=== PATIENT | male | born 1975 ===

== ENCOUNTER 2017-02-27 11:55 | Inpatient (IN) | payer OTHER ==
[2017-02-27] MEDS ORDERED: Sodium Chloride 0.9% 1,000 ML IV STA (12:01)
--- NOTE | 2017-02-27 12:04 | ED PDOC ---
Arrival/HPI - General Chief Complaint: GI Problem Time Seen by Provider: 02/27/17 11:57 Historian: Patient - History of Present Illness Narrative History of Present Illness (Text): 02/27/17 12:04 41 year old male, denies past medical history, presents to the emergency department with vomiting, chest pain, and abdominal pain worsening yesterday. He states the chest pain is sharp. Patient also reports chills, sweats, and diarrhea. No other complaints. Time/Duration: < week Symptom Onset: Gradual Symptom Course: Worsening Modifying Factors (Text): None Past Medical History - Provider Review Nursing Documentation Reviewed: Yes - Infectious Disease Hx of Infectious Diseases: None - Gastrointestinal Other/Comment: Unknown problem diagnosed at [facility] [place] - Psychiatric Hx Substance Use: Yes Family/Social History - Physician Review Nursing Documentation Reviewed: Yes Family/Social History: Unknown Family HX Smoking Status: Heavy Smoker > 10 Cigarettes Daily Hx Alcohol Use: No Hx Substance Use: Yes Allergies/Home Meds Allergies/Adverse Reactions: Allergies No Known Allergies Allergy (Verified 02/27/17 12:02) Home Medications: Home Meds Medication Instructions Recorded Confirmed Unobtainable 02/27/17 02/27/17 Review of Systems - Physician Review All systems were reviewed & negative as marked: Yes - Review of Systems Constitutional: Other (Chills) Cardiovascular: Chest Pain Gastrointestinal: Abdominal Pain, Diarrhea, Nausea, Vomiting Endocrine: Diaphoresis Physical Exam Vital Signs Reviewed: Yes Vital Signs Temp Pulse Resp BP Pulse Ox 02/27/17 18:54 48 L 18 117/78 100 02/27/17 17:36 58 L 18 153/90 H 98 02/27/17 15:20 48 L 18 147/85 100 02/27/17 13:28 50 L 18 154/80 H 98 02/27/17 11:56 98 F 56 L 16 135/71 100 Temperature: Afebrile Blood Pressure: Normal Pulse: Bradycardic Respiratory Rate: Normal Appearance: Positive for: Uncomfortable Pain Distress: Moderate Mental Status: Positive for: Alert and Oriented X 3 - Systems Exam Head: Present: Atraumatic, Normocephalic Pupils: Present: PERRL Extroacular Muscles: Present: EOMI Conjunctiva: Present: Normal Mouth: Present: Moist Mucous Membranes Neck: Present: Normal Range of Motion Respiratory/Chest: Present: Clear to Auscultation, Good Air Exchange. No: Respiratory Distress, Accessory Muscle Use Cardiovascular: Present: Regular Rate and Rhythm, Normal S1, S2. No: Murmurs Abdomen: Present: Tenderness (Epigastric ), Normal Bowel Sounds. No: Distention , Peritoneal Signs Back: Present: Normal Inspection Upper Extremity: Present: Normal Inspection. No: Cyanosis, Edema Lower Extremity: Present: Normal Inspection. No: Edema Neurological: Present: GCS=15, CN II-XII Intact, Speech Normal Skin: Present: Warm, Dry, Normal Color. No: Rashes Psychiatric: Present: Alert, Oriented x 3, Normal Insight, Normal Concentration Medical Decision Making ED Course and Treatment: Impression: 41 year old male, denies past medical history, presents to the emergency department with vomiting, chest pain, and abdominal pain worsening yesterday. Differential Diagnosis included but are not limited to: r/o colitis/gastritis/ appendicitis Plan: -- EKG, CXR -- Zofran, Protonix -- Labs -- Reassess and disposition Progress Notes: Patient is PERC negative. 02/27/17 12:51 pt reassessed. states symptoms improving ,now reprots rlq pain PROCEDURE: CT Abdomen and Pelvis with contrast Language Path : Dr. Hernández, Seth BARNARD Report Date : 02/27/2017 16:32:55 IMPRESSION: Minimal barium is noted within the appendiceal lumen with overall slight prominence of the appendix. There is, however, no abnormal enhancement or periappendiceal fat infiltration. Early appendicitis is not definitively excluded. 02/27/17 19:31 pt with ekg showing sinus brielle. no previous for comparison. pt asymptomatic, hemodynamically stable. suspect baseline for pt. pt eval by dr aaron oliva. requests hospitalist admission for eval for possible or tommorow. npo after midnight - Lab Interpretations Lab Results: 02/27/17 12:20 02/27/17 12:20 Lab Results 02/27/17 14:20: Urine Color Yellow, Urine Appearance Clear, Urine pH 8.5, Ur Specific [place] 1.020, Urine Protein Trace H, Urine Glucose (UA) Negative, Urine Ketones >=80, Urine Blood Negative, Urine Nitrate Negative, Urine Bilirubin Negative, Urine Urobilinogen 0.2, Ur Leukocyte Esterase Negative, Urine RBC Negative, Urine WBC 1 - 3, Ur Epithelial Cells 1 - 3, Urine Bacteria Few 02/27/17 12:20: Sodium 140, Potassium 4.4, Chloride 104, Carbon Dioxide 23, Anion Gap 17, BUN 12, Creatinine 1.0, Est GFR ( Amer) > 60, Est GFR (Non- Af Amer) > 60, Random Glucose 116 H, Calcium 10.1, Total Bilirubin 1.2, AST 42, ALT 73 H, Alkaline Phosphatase 72, Total Protein 8.1, Albumin 4.8, Globulin 3.2 , Albumin/Globulin Ratio 1.5, Lipase 34 02/27/17 12:20: PT 10.7, INR 0.99, APTT 25.9 02/27/17 12:20: WBC 11.7 H, RBC 4.80, Hgb 15.3, Hct 43.9, MCV 91.5, MCH 31.9, MCHC 34.9, RDW 12.9, Plt Count 158, MPV 12.2 H, Gran % 84.9 H, Lymph % (Auto) 10.9 L, [place] % (Auto) 3.7, Eos % (Auto) 0.3 L, Baso % (Auto) 0.2, Gran # 9.92 H , Lymph # 1.3, [place] # 0.4, Eos # 0.0, Baso # 0.02 02/27/17 12:00: Lactate Dehydrogenase 500, Total Creatine Kinase 274 H, CK-MB ( CK-2) Pending, CK-MB (CK-2) % Pending, Troponin I < 0.01 - RAD Interpretation Radiology Orders: 02/27/17 12:01 CXR [CHEST PORTABLE] [RAD] Stat 02/27/17 12:51 ABD & PELVIS IV CONTRAST ONLY [CT] Stat - EKG Interpretation EKG Interpretation (Text): EKG shows sinus bradycardia at 40 BPM with early repolarization. Interpreted by me. Interpreted by ED Physician: Yes Type: 12 lead EKG - Medication Orders Current Medication Orders: Discontinued Medications Sodium Chloride (Sodium Chloride 0.9%) 1,000 mls @ 1,000 mls/hr IV .Q1H STA Stop: 02/27/17 13:00 Last Admin: 02/27/17 12:20 Dose: 1,000 mls/hr Piperacillin Sod/Tazobactam Sod (Zosyn 3.375 In Ns 100ml) 100 mls @ 200 mls/hr IVPB STAT STA PRN Reason: Protocol Stop: 02/27/17 17:04 Last Admin: 02/27/17 16:57 Dose: 200 mls/hr Iohexol (Omnipaque 350 100 Ml) Confirm Administered Dose 350 mg .ROUTE .STK-MED ONE Stop: 02/27/17 13:44 Ondansetron HCl (Zofran Inj) 4 mg IVP STAT STA Stop: 02/27/17 12:02 Last Admin: 02/27/17 12:19 Dose: 4 mg Pantoprazole Sodium (Protonix Inj) 40 mg IVP STAT STA Stop: 02/27/17 12:02 Last Admin: 02/27/17 12:20 Dose: 40 mg - Scribe Statement The provider has reviewed the documentation as recorded by the Agnes Barriga Provider Scribe Attestation: All medical record entries made by the Agnes were at my direction and personally dictated by me. I have reviewed the chart and agree that the record accurately reflects my personal performance of the history, physical exam, medical decision making, and the department course for this patient. I have also personally directed, reviewed, and agree with the discharge instructions and disposition. Disposition/Present on Arrival - Present on Arrival Any Indicators Present on Arrival: No History of DVT/PE: No History of Uncontrolled Diabetes: No Urinary Catheter: No History of Decub. Ulcer: No History Surgical Site Infection Following: None - Disposition Have Diagnosis and Disposition been Completed?: Yes Diagnosis: Appendicitis, Chest pain, Bradycardia Disposition: HOSPITALIZED Disposition Time: 20:34 Condition: STABLE
[2017-02-27 12:26] LABS: ADD MANUAL DIFF? NO
[2017-02-27 12:35] LABS: BASO # 0.02 K/mm3 (0.0-2.0); BASO % 0.2 % (0.0-3.0); EOS % 0.3 % (1.5-5.0); GRAN # 9.92 (1.4-6.5); GRAN % 84.9 % (50.0-68.0); HEMATOCRIT 43.9 % (42.0-52.0); LYMPH # 1.3 (1.2-3.4); LYMPH % 10.9 % (22.0-35.0); MEAN CELL VOLUME 91.5 fL (80.0-105.0); MEAN CORPUSCULAR HEMOGLOBIN 31.9 pg (25.0-35.0); MEAN CORPUSCULAR HGB CONC 34.9 g/dl (31.0-37.0); MEAN PLATELET VOLUME 12.2 fl (7.0-11.0); MONO # 0.4 (0.1-0.6); MONO % 3.7 % (1.0-6.0); PLATELET COUNT 158 10^3/uL (120.0-450.0); RED CELL DISTRIBUTION WIDTH 12.9 % (11.5-14.5); WHITE BLOOD COUNT 11.7 10^3/ul (4.5-11.0)
[2017-02-27 12:38] LABS: ALB/GLOB RATIO 1.5 (1.1-1.8); ALKALINE PHOSPHATASE 72 U/L (38-133); ALT/SGPT 73 U/L (7-56); AST/SGOT 42 U/L (15-59); BILIRUBIN,TOTAL 1.2 mg/dL (0.2-1.3); BLOOD UREA NITROGEN 12 mg/dL (7-21); CALCIUM 10.1 mg/dL (8.4-10.5); CARBON DIOXIDE 23 mmol/L (21-33); CHLORIDE 104 mmol/L (98-107); GFR AFRICAN-AMERICAN > 60; GLUCOSE,RANDOM 116 mg/dL (70-110); LIPASE 34 U/L (23-300); POTASSIUM 4.4 mmol/L (3.6-5.0); SODIUM 140 mmol/L (132-148); TOTAL PROTEIN 8.1 g/dL (5.8-8.3)
[2017-02-27 12:40] LABS: INR 0.99 (0.93-1.08); PARTIAL THROMBOPLASTIN TIME 25.9 Seconds (23.7-30.8)
[2017-02-27] MEDS ORDERED: Iohexol 350 MG/100 ML VIAL ONE (13:43)
[2017-02-27 15:01] LABS: PH,URINE 8.5 (4.7-8.0); URINE BILIRUBIN NEGATIVE (NEGATIVE); URINE BLOOD NEGATIVE (NEGATIVE); URINE GLUCOSE (UA) NEGATIVE (NEGATIVE); URINE KETONE >=80 mg/dL (NEGATIVE); URINE LEUKOCYTE ESTERASE NEGATIVE Leu/uL (NEGATIVE); URINE PROTEIN TRACE mg/dL (<30 mg/dL); URINE UROBILINOGEN 0.2 E.U./dL (<1 E.U./dL)
[2017-02-27 15:15] LABS: URINE APPEARANCE CLEAR (CLEAR); URINE COLOR YELLOW (YELLOW)
[2017-02-27 15:30] LABS: URINE BACTERIA FEW (NEG); URINE RBC NEGATIVE /hpf (0-2)
--- NOTE | 2017-02-27 15:43 | CARD ---
APPROVED REPORT EKG Measurement Heart [id number] IN [id number] [id number] <Conclusion> Marked sinus bradycardia with sinus arrhythmia Voltage criteria for left ventricular hypertrophy Early repolarization Abnormal ECG
--- NOTE | 2017-02-27 16:34 | CT ---
PROCEDURE: CT Abdomen and Pelvis with contrast HISTORY: right sided abd pain COMPARISON: None. TECHNIQUE: Contrast dose: Radiation dose: Total exam DLP = mGy-cm. This CT exam was performed using one or more of the following dose reduction techniques: Automated exposure control, adjustment of the mA and/or kV according to patient size, and/or use of iterative reconstruction technique. FINDINGS: LOWER THORAX: Unremarkable. LIVER: Unremarkable. No gross lesion or ductal dilatation. GALLBLADDER AND BILE DUCTS: Unremarkable. PANCREAS: Unremarkable. No gross lesion or ductal dilatation. SPLEEN: Unremarkable. ADRENALS: Unremarkable. No mass. KIDNEYS AND URETERS: Unremarkable. No hydronephrosis. No solid mass. VASCULATURE: Unremarkable. No aortic aneurysm. BOWEL: Unremarkable. No obstruction. No gross mural thickening. APPENDIX: Minimal barium is noted within the appendiceal lumen with overall slight prominence of the appendix. There is,, no abnormal enhancement or perihepatic appendiceal fat infiltration. PERITONEUM: Unremarkable. No free fluid. No free air. LYMPH NODES: Unremarkable. No enlarged lymph nodes. BLADDER: Unremarkable. REPRODUCTIVE: Unremarkable. BONES: No acute fracture. OTHER FINDINGS: None. IMPRESSION: Minimal barium is noted within the appendiceal lumen with overall slight prominence of the appendix. There is, however, no abnormal enhancement or periappendiceal fat infiltration. Early appendicitis is not definitively excluded.
[2017-02-27] MEDS ORDERED: Piperacillin/Tazobact 3.375 gm 100 ML IVPB STA (16:35)
[2017-02-27 19:23] LABS: TROPONIN I < 0.01 ng/mL
[2017-02-27] MEDS ORDERED: Pantoprazole 40mg/100ml IVPB 40 MG/100 ML BAG IVPB SCH (21:00)
--- NOTE | 2017-02-27 21:27 | CP.PCM.CON ---
History of Present Illness - History of Present Illness History of Present Illness: General Surgery Consult Note for Dr. Knowles CC: Abdominal Pain This is a 41M with no PMH who presented to the ED due to abdominal pain that he has been experiencing for on and off since oct 2016. He reports that he does not know any inciting or alleviating factors. He reports chest pain, as well as nausea and emesis when eating. He reports that his last meal was on . He is still passing gas and he reports his last bowel movement was earlier today. The patient reports a previous diagnosisi of hiatal hernia for which he was prescribed antacid medications. He denies any fevers, or chills at home. PMH: Hiatal Hernia PSH: Denies Social: smokes 5 cig/day, smokes marijuana multiple times per day, occasional alcohol use Fam hx: denies All: NKDA Review of Systems - Review of Systems All systems: reviewed and no additional remarkable complaints except Past Patient History - Infectious Disease Hx of Infectious Diseases: None - Past Social History Smoking Status: Heavy Smoker > 10 Cigarettes Daily - GASTROINTESTINAL Other/Comment: Unknown problem diagnosed at [facility] [place] - PSYCHIATRIC Hx Substance Use: Yes - SURGICAL HISTORY Hx Surgeries: No Meds Allergies/Adverse Reactions: Allergies Allergy/AdvReac Type Severity Reaction Status Date / Time No Known Allergies Allergy Verified 02/27/17 12:02 - Medications Medications: Current Medications Sodium Chloride (Sodium Chloride 0.9%) 1,000 mls @ 100 mls/hr IV .Q10H [facility] Ketorolac Tromethamine (Toradol) 15 mg IVP Q6 PRN PRN Reason: Pain, severe (8-10) Ondansetron HCl (Zofran Inj) 4 mg IVP Q6 PRN PRN Reason: Nausea/Vomiting Pantoprazole Sodium (Protonix Inj) 40 mg IVP DAILY [facility] Physical Exam - Constitutional Appears: Non-toxic, No Acute Distress - Head Exam Head Exam: ATRAUMATIC - Eye Exam Eye Exam: EOMI - ENT Exam ENT Exam: Mucous Membranes Moist - Respiratory Exam Respiratory Exam: NORMAL BREATHING PATTERN - Cardiovascular Exam Cardiovascular Exam: REGULAR RHYTHM - GI/Abdominal Exam GI & Abdominal Exam: Soft, Tenderness. absent: Distended, Firm, Guarding, Hernia, Hypoactive Bowel Sounds, Rebound, Rigid - Extremities Exam Extremities exam: Positive for: normal inspection - Neurological Exam Neurological exam: Alert, Oriented x3 - Psychiatric Exam Psychiatric exam: Normal Affect, Normal Mood - Skin Skin Exam: Dry, Intact Results - Vital Signs Recent Vital Signs: Last Vital Signs Temp 98 F 02/27/17 11:56 Pulse 50 L 02/27/17 20:56 Resp 16 02/27/17 20:56 BP 120/40 L 02/27/17 20:56 Pulse Ox 100 02/27/17 20:56 - Labs Result Diagrams: 02/27/17 12:20 02/27/17 12:20 - Imaging and Cardiology CT scan - abdomen Status: Image reviewed by me, Report reviewed by me Assessment & Plan - Assessment and Plan (Free Text) Assessment: This is a 41M with a PMH of hiatal hernia presenting with chest pain and abdominal pain. CLD Followup AM labs Will re-examine in the morning Continue medical management per primary team. D/W Dr. Benson Velazquez PGY-1
--- NOTE | 2017-02-27 21:46 | CP.PCM.HP ---
<Rosita Parham - Last Filed: 02/28/17 01:19> History of Present Illness - History of Present Illness History of Present Illness: PGY-1 h&p 41 yo male with PMH of hiatal hernia presents to ED with vomiting, chest pain and abd pain. Patient states that the non-bloody emesis began yesterday night, he states he has had multiple episodes throughout the days. He states shortly after he began to vomiting he started to have chest pain, on the left side. The pain was constant, worse with his episodes of vomiting. He reports that the pain is worse with deep inspiration. He denies previous similar pain. He also reports diarrhea with small amount of bright red blood. He attempts to have cold sweats, denies fever, chills, headache, cough, urinary symptoms. PMH: hiatal hernia PSH: denies social: smokes 5 cig/day, smokes marijuana multiple times per day, occasional alcohol use Fam hx: denies allergy: NKDA no home meds PMD: Dr. Haywood Present on Admission - Present on Admission Any Indicators Present on Admission: No Review of Systems - Constitutional Constitutional: absent: Chills, Fever, Headache, Weakness - EENT Eyes: absent: Change in Vision Nose/Mouth/Throat: absent: Nasal Congestion, Nasal Discharge, Sinus Pain, Hoarsness, Sore Throat - Cardiovascular Cardiovascular: Chest Pain. absent: Dyspnea, Pain Radiating to Arm/Neck/Jaw, Leg Edema, Palpitations - Respiratory Respiratory: Pain on Inspiration (chest pain with deep inspiration ). absent: Cough, Dyspnea, Dyspnea on Exertion - Gastrointestinal Gastrointestinal: Abdominal Pain, Diarrhea, Heartburn, Hematochezia, Nausea, Vomiting. absent: Constipation, Hematemesis - Genitourinary Genitourinary: absent: Difficulty Urinating, Dysuria, Hematuria - Musculoskeletal Musculoskeletal: absent: Arthralgias, Myalgias, Numbness, Stiffness, Tingling - Integumentary Integumentary: absent: Rash, Skin Pain, Skin Ulcer, Sores, Swelling, Wounds - Neurological Neurological: absent: Dizziness, Numbness, Headaches, Syncope, Tingling, Weakness - Hematologic/Lymphatic Hematologic: absent: Easy Bleeding, Easy Bruising Past Patient History - Infectious Disease Hx of Infectious Diseases: None - Past Social History Smoking Status: Heavy Smoker > 10 Cigarettes Daily Alcohol: Occasional Drugs: Cannabis - GASTROINTESTINAL Other/Comment: Unknown problem diagnosed at [facility] [place] - PSYCHIATRIC Hx Substance Use: Yes - SURGICAL HISTORY Hx Surgeries: No Meds Allergies/Adverse Reactions: Allergies Allergy/AdvReac Type Severity Reaction Status Date / Time No Known Allergies Allergy Verified 02/27/17 12:02 Physical Exam - Constitutional Appears: Well, No Acute Distress - Head Exam Head Exam: ATRAUMATIC, NORMOCEPHALIC - Eye Exam Eye Exam: EOMI, Normal appearance - ENT Exam ENT Exam: Mucous Membranes Moist - Respiratory Exam Respiratory Exam: Clear to Auscultation Bilateral, NORMAL BREATHING PATTERN. absent: Decreased Breath Sounds, Rales, Rhonchi, Wheezes, Respiratory Distress - Cardiovascular Exam Cardiovascular Exam: REGULAR RHYTHM, +S1, +S2. absent: Tachycardia, Diastolic murmur, Systolic Murmur - GI/Abdominal Exam GI & Abdominal Exam: Normal Bowel Sounds, Soft, Tenderness (RLQ>LLQ). absent: Distended, Firm, Guarding - Extremities Exam Extremities exam: Positive for: normal inspection. Negative for: pedal edema, tenderness - Back Exam Back exam: absent: CVA tenderness (L), CVA tenderness (R), paraspinal tenderness , vertebral tenderness - Neurological Exam Neurological exam: Alert, Oriented x3 - Skin Skin Exam: Dry, Intact, Normal Color, Warm Results - Vital Signs Recent Vital Signs: Last Vital Signs Temp 98 F 02/27/17 11:56 Pulse 50 L 02/27/17 20:56 Resp 16 02/27/17 20:56 BP 120/40 L 02/27/17 20:56 Pulse Ox 100 02/27/17 20:56 - Labs Result Diagrams: 02/27/17 12:20 02/27/17 12:20 Assessment & Plan - Assessment and Plan (Free Text) Assessment: 41 yo male with PMH of hiatal hernia presents to ED with vomiting, chest pain and abd pain. CT abd with PO contrast showed slight prominence of appendix, no periappendiceal infiltration. possible early appendicitis. Plan: 1. abd pain with emesis - CT abd with PO contrast showed slight prominence of appendix, no periappendiceal infiltration. possible early appendicitis. - surgery consult - liquid diet, advance as tolerated - toradol for pain prn - stool blood occult - stool cultures 2. chest pain - reproducible with palpitation, most likely MSK - trop neg x1, EKG showed sinus bradycardia ppx GI- protonix DVT- activity as tolerated <Nick Escalera - Last Filed: 02/28/17 01:35> Results - Vital Signs Recent Vital Signs: Last Vital Signs Temp 98.1 F 02/27/17 23:04 Pulse 55 L 02/27/17 23:04 Resp 18 02/27/17 23:04 BP 114/71 02/27/17 23:04 Pulse Ox 100 02/27/17 23:04 - Labs Result Diagrams: 02/27/17 12:20 02/27/17 12:20 Attending/Attestation - Attestation I have personally seen and examined this patient.: Yes I have fully participated in the care of the patient.: Yes I have reviewed all pertinent clinical information: Yes Notes (Text): 02/28/17 01:34 Patient was seen when he was in the ER . Agree with history , physical examination, assessment and plan.
[2017-02-27 22:57] VITALS: BMI 24.3
[2017-02-27] MEDS: Sodium Chloride 0.9% 1,000 ML IV SCH (23:17)
--- NOTE | 2017-02-28 08:05 | RAD ---
HISTORY: cp COMPARISON: No prior. FINDINGS: LUNGS: No active pulmonary disease. PLEURA: No significant pleural effusion identified, no pneumothorax apparent. CARDIOVASCULAR: Normal. OSSEOUS STRUCTURES: No significant abnormalities. VISUALIZED UPPER ABDOMEN: Normal. OTHER FINDINGS: None. IMPRESSION: No active disease.
[2017-02-28 08:21] LABS: ADD MANUAL DIFF? NO
[2017-02-28 08:27] LABS: BASO # 0.01 K/mm3 (0.0-2.0); BASO % 0.1 % (0.0-3.0); EOS # 0.1 (0.0-0.7); EOS % 0.8 % (1.5-5.0); GRAN % 72.1 % (50.0-68.0); HEMATOCRIT 39.9 % (42.0-52.0); LYMPH # 1.5 (1.2-3.4); LYMPH % 20.7 % (22.0-35.0); MEAN CELL VOLUME 93.2 fL (80.0-105.0); MEAN CORPUSCULAR HEMOGLOBIN 31.5 pg (25.0-35.0); MEAN CORPUSCULAR HGB CONC 33.8 g/dl (31.0-37.0); MEAN PLATELET VOLUME 11.9 fl (7.0-11.0); MONO # 0.5 (0.1-0.6); MONO % 6.3 % (1.0-6.0); PLATELET COUNT 120 10^3/uL (120.0-450.0); RED CELL DISTRIBUTION WIDTH 13.3 % (11.5-14.5); WHITE BLOOD COUNT 7.4 10^3/ul (4.5-11.0)
[2017-02-28 08:42] LABS: ALB/GLOB RATIO 1.4 (1.1-1.8); ALKALINE PHOSPHATASE 49 U/L (38-133); ALT/SGPT 52 U/L (7-56); AST/SGOT 26 U/L (15-59); BILIRUBIN,TOTAL 0.9 mg/dL (0.2-1.3); BLOOD UREA NITROGEN 12 mg/dL (7-21); CALCIUM 8.8 mg/dL (8.4-10.5); CARBON DIOXIDE 26 mmol/L (21-33); CHLORIDE 108 mmol/L (98-107); GFR AFRICAN-AMERICAN > 60; GLUCOSE,RANDOM 99 mg/dL (70-110); POTASSIUM 3.6 mmol/L (3.6-5.0); SODIUM 139 mmol/L (132-148); TOTAL PROTEIN 6.3 g/dL (5.8-8.3)
[2017-02-28] MEDS: cefTRIAXone 1 gm 1 GM/100 ML BAG IVPB SCH (09:26)
[2017-02-28] MEDS ORDERED: Ciprofloxacin 400mg/200ml D5W 400 MG/200 ML BAG IVPB SCH (10:00)
--- NOTE | 2017-02-28 11:48 | CP.PCM.PN ---
Subjective - Date & Time of Evaluation Date of Evaluation: 02/28/17 Time of Evaluation: 08:20 - Subjective Subjective: Pt S&E this AM. Reports feeling better than yesterday. Patient states he still has some right lower quadrant tenderness. Denies any fever/chills, n/v/d, dysuria. Will repeat CT scan. Objective - Vital Signs/Intake and Output Vital Signs (last 24 hours): Temp Pulse Resp BP Pulse Ox 98.4 F 47 L 20 113/72 98 02/28/17 06:00 02/28/17 06:00 02/28/17 06:00 02/28/17 06:00 02/28/17 06:00 Intake and Output: 02/28/17 02/28/17 06:59 18:59 Intake Total 1720 Balance 1720 - Medications Medications: Current Medications Sodium Chloride (Sodium Chloride 0.9%) 1,000 mls @ 100 mls/hr IV .Q10H [facility] Last Admin: 02/27/17 23:17 Dose: 100 mls/hr Metronidazole (Flagyl) 250 mg in 50 mls @ 100 mls/hr IVPB Q8 MIRIAM PRN Reason: Protocol Stop: 03/05/17 14:01 Ceftriaxone Sodium (Rocephin 1 Gram Ivpb) 1 gm in 100 mls @ 100 mls/hr IVPB DAILY [facility] PRN Reason: Protocol Last Admin: 02/28/17 09:26 Dose: 100 mls/hr Ketorolac Tromethamine (Toradol) 15 mg IVP Q6 PRN PRN Reason: Pain, severe (8-10) Ondansetron HCl (Zofran Inj) 4 mg IVP Q6 PRN PRN Reason: Nausea/Vomiting Pantoprazole Sodium (Protonix Inj) 40 mg IVP DAILY [facility] Last Admin: 02/28/17 09:25 Dose: 40 mg - Labs Labs: 02/28/17 08:20 02/28/17 08:20 PT 10.7 Seconds (9.9-11.8) 02/27/17 12:20 INR 0.99 (0.93-1.08) 02/27/17 12:20 APTT 25.9 Seconds (23.7-30.8) 02/27/17 12:20 - Constitutional Appears: No Acute Distress - ENT Exam ENT Exam: Mucous Membranes Moist - Respiratory Exam Respiratory Exam: NORMAL BREATHING PATTERN - Cardiovascular Exam Cardiovascular Exam: +S1, +S2 - GI/Abdominal Exam GI & Abdominal Exam: Soft, Tenderness Additional comments: RLQ tenderness on deep palpation - Extremities Exam Extremities Exam: absent: Calf Tenderness - Neurological Exam Neurological Exam: Alert, Awake - Psychiatric Exam Psychiatric exam: Normal Mood - Skin Skin Exam: Dry, Intact, Warm Assessment and Plan - Assessment and Plan (Free Text) Assessment: 41M w/ RLQ tenderness likely 2/2 early appendicitis -Will repeat CT Abd&Pelvis w/ PO & IV contrast to re-evaluate appendix -Will advance diet for now -NPO after midnight. Possible diagnostic laparoscopy tomorrow. -C/w abx -C/w analgesic -DVT/GI ppx -D/w Dr. Knowles
[2017-02-28 13:53] LABS: TROPONIN I < 0.01 ng/mL
[2017-02-28] MEDS: metroNIDAZOLE IV 250mg/50 ml 250 MG/50 ML BAG IVPB SCH ×2 (14:06→21:29)
--- NOTE | 2017-02-28 14:06 | CON ---
DATE: 02/28/2017 The patient is in room 271, bed 1. REASON FOR CONSULTATION: Bradycardia, chest pain. HISTORY OF PRESENT ILLNESS: A 41-year-old male admitted with a history that he had sudden onset of v omiting, diarrhea and abdominal pain and also chest pain, but chest pain was only on deep inspiration . He denies any prior history of exertional chest pain. The patient said he vomited at least 10 navi es and very frequent diarrhea along with abdominal pain. The patient denies any history of other med ical disease in the past. PAST MEDICAL HISTORY: He was told to have hiatal hernia. FAMILY HISTORY: Not significant. ALLERGIES: Denies any allergies. PERSONAL HISTORY: He smokes 5-6 cigarettes a day and smokes marijuana multiple times every day, drin ks alcohol socially. MEDICATIONS AT HOME: The patient was not taking. REVIEW OF SYSTEMS: All the systems reviewed, positives mentioned in the history, others were negativ e. PHYSICAL EXAMINATION: VITAL SIGNS: Blood pressure is 125/81, respirations 20, pulse is 53-44 per minute. HEAD: Normocephalic. EYES: Pupils normal. Conjunctivae normal. NECK: JVP low. Carotid equal. THORAX: AP diameter normal. LUNGS: Clear. CARDIOVASCULAR: S1, S2. No rub, no click. ABDOMEN: Tenderness in the right iliac fossa and left iliac fossa, more so on the right iliac fossa. PERIPHERIES: No clubbing, no cyanosis, no edema. LABORATORY DATA: WBC 7.4, hemoglobin 13.5, hematocrit 39.9, platelet 120. Sodium 139, potassium 3.6 , BUN 12, creatinine 1.1. Calcium, bilirubin, AST, ALT normal. Total protein, albumin normal. TSH 2.40. The patient's chest x-ray, no active disease. EKG showed sinus bradycardia, high voltage, can be nor mal for young age. Abdominal and pelvic CAT scan: Minimal barium is noted within the appendiceal bren men with overall slight prominence of appendix, early appendicitis cannot be ruled out. DIAGNOSES: Chest pain, atypical, only on deep inspiration, abdominal pain with vomiting and diarrhea , rule out appendicitis, sinus bradycardia, asymptomatic. PLAN: The patient has bradycardia which can be normal at young age and also patient is totally asymp tomatic. We will check TSH and we will also do echocardiogram. Since bradycardia can be normal at a young age and patient has been having abdominal pain and nausea, so part of it may be vasovagal. So from cardiac point of view, if patient needs surgery, he can go for surgery as mild to moderate risk . The patient on antibiotics, Protonix 40 mg IV daily. The patient on metronidazole and piperacilli n/tazobactam. The patient is getting IV fluid normal saline 100 mL an hour. The patient also gettin g Rocephin 1 gram IV daily. We will continue these therapies and we will check TSH and will do an ec ho. Will follow with you. Lynn Ventura MD cc: [id number] TT: 02/28/2017 14:05:42 Confirmation # [id number] Dictation # [id number] en
[2017-02-28] MEDS ORDERED: HYDROmorphone 1 mg/ml ISec IVP STA (18:03)
--- NOTE | 2017-02-28 20:13 | CP.PCM.PN ---
Subjective - Date & Time of Evaluation Date of Evaluation: 02/28/17 Time of Evaluation: 11:00 - Subjective Subjective: Pt seen and evaluated at bedside. Denies chest pain, abdominal pain, fever, n/ v. Afebrile overnight. Objective - Vital Signs/Intake and Output Vital Signs (last 24 hours): Temp Pulse Resp BP Pulse Ox 98.7 F 41 L 18 121/71 98 02/28/17 17:36 02/28/17 18:00 02/28/17 17:36 02/28/17 17:36 02/28/17 06:00 Intake and Output: 02/28/17 03/01/17 18:59 06:59 Intake Total 960 Output Total 5 Balance 955 - Medications Medications: Current Medications Acetaminophen (Tylenol 325mg Tab) 650 mg PO Q6H PRN PRN Reason: Fever >100.4 F Hydromorphone HCl (Dilaudid) 0.5 mg IVP Q3H PRN PRN Reason: Pain, moderate (4-7) Sodium Chloride (Sodium Chloride 0.9%) 1,000 mls @ 100 mls/hr IV .Q10H [facility] Last Admin: 02/27/17 23:17 Dose: 100 mls/hr Metronidazole (Flagyl) 250 mg in 50 mls @ 100 mls/hr IVPB Q8 [facility] PRN Reason: Protocol Stop: 03/05/17 14:01 Last Admin: 02/28/17 14:06 Dose: 100 mls/hr Ceftriaxone Sodium (Rocephin 1 Gram Ivpb) 1 gm in 100 mls @ 100 mls/hr IVPB DAILY [facility] PRN Reason: Protocol Last Admin: 02/28/17 09:26 Dose: 100 mls/hr Ketorolac Tromethamine (Toradol) 15 mg IVP Q6 PRN PRN Reason: Pain, severe (8-10) Ondansetron HCl (Zofran Inj) 4 mg IVP Q6 PRN PRN Reason: Nausea/Vomiting Last Admin: 02/28/17 17:37 Dose: 4 mg Pantoprazole Sodium (Protonix Inj) 40 mg IVP DAILY [facility] Last Admin: 02/28/17 09:25 Dose: 40 mg - Labs Labs: 02/28/17 08:20 02/28/17 08:20 PT 10.7 Seconds (9.9-11.8) 02/27/17 12:20 INR 0.99 (0.93-1.08) 02/27/17 12:20 APTT 25.9 Seconds (23.7-30.8) 02/27/17 12:20 - Constitutional Appears: Non-toxic, No Acute Distress - Head Exam Head Exam: ATRAUMATIC, NORMOCEPHALIC - Eye Exam Eye Exam: EOMI, Normal appearance - ENT Exam ENT Exam: Mucous Membranes Moist, Normal Exam - Respiratory Exam Respiratory Exam: Clear to Ausculation Bilateral, NORMAL BREATHING PATTERN - Cardiovascular Exam Cardiovascular Exam: Bradycardia, +S1, +S2 - GI/Abdominal Exam GI & Abdominal Exam: Soft, Tenderness Additional comments: RLQ tenderness - Exam External exam: absent: Ecchymosis, Erythema - Back Exam Back Exam: absent: CVA tenderness (L), CVA tenderness (R) - Neurological Exam Neurological Exam: Alert, Awake - Skin Skin Exam: Intact, Normal Color
[2017-02-28] MEDS: Sodium Chloride 0.9% 1,000 ML IV SCH (21:16)
[2017-02-28] MEDS: HYDROmorphone 0.5 mg/0.5 ml ISec IVP PRN (21:30)
[2017-02-28 22:46] LABS: TROPONIN I < 0.01 ng/mL
[2017-03-01] MEDS: metroNIDAZOLE IV 250mg/50 ml 250 MG/50 ML BAG IVPB SCH ×3 (05:30→21:08)
[2017-03-01] MEDS ORDERED: Barium Sulfate Susp 2.1% w/v, 2.0% w/w 450 mL Bottle PO ONE (06:26)
[2017-03-01] MEDS: Sodium Chloride 0.9% 1,000 ML IV SCH ×3 (06:50→14:24)
[2017-03-01 07:29] LABS: ADD MANUAL DIFF? NO
--- NOTE | 2017-03-01 07:38 | CP.PCM.PN ---
Subjective - Date & Time of Evaluation Date of Evaluation: 03/01/17 Time of Evaluation: 07:35 - Subjective Subjective: Surgery: Dr. Knowles Patient complains only of pain with palpation of the abdomen, Mainly in the right side of the abdomen radiating to umbilicus. He denies appetite. He denies n/v/f/c. Objective - Vital Signs/Intake and Output Vital Signs (last 24 hours): Temp Pulse Resp BP Pulse Ox 98.4 F 44 L 20 106/49 L 98 03/01/17 06:00 03/01/17 06:00 03/01/17 06:00 03/01/17 06:00 03/01/17 06:00 Intake and Output: 03/01/17 03/01/17 06:59 18:59 Intake Total 2640 Balance 2640 - Medications Medications: Current Medications Acetaminophen (Tylenol 325mg Tab) 650 mg PO Q6H PRN PRN Reason: Fever >100.4 F Hydromorphone HCl (Dilaudid) 0.5 mg IVP Q3H PRN PRN Reason: Pain, moderate (4-7) Last Admin: 02/28/17 21:30 Dose: 0.5 mg Sodium Chloride (Sodium Chloride 0.9%) 1,000 mls @ 100 mls/hr IV .Q10H [facility] Last Admin: 03/01/17 06:50 Dose: 100 mls/hr Metronidazole (Flagyl) 250 mg in 50 mls @ 100 mls/hr IVPB Q8 [facility] PRN Reason: Protocol Stop: 03/05/17 14:01 Last Admin: 03/01/17 05:30 Dose: 100 mls/hr Ceftriaxone Sodium (Rocephin 1 Gram Ivpb) 1 gm in 100 mls @ 100 mls/hr IVPB DAILY [facility] PRN Reason: Protocol Last Admin: 02/28/17 09:26 Dose: 100 mls/hr Ketorolac Tromethamine (Toradol) 15 mg IVP Q6 PRN PRN Reason: Pain, severe (8-10) Ondansetron HCl (Zofran Inj) 4 mg IVP Q6 PRN PRN Reason: Nausea/Vomiting Last Admin: 02/28/17 17:37 Dose: 4 mg Pantoprazole Sodium (Protonix Inj) 40 mg IVP DAILY [facility] Last Admin: 02/28/17 09:25 Dose: 40 mg - Labs Labs: 02/28/17 08:20 02/28/17 08:20 PT 10.7 Seconds (9.9-11.8) 02/27/17 12:20 INR 0.99 (0.93-1.08) 02/27/17 12:20 APTT 25.9 Seconds (23.7-30.8) 02/27/17 12:20 - Constitutional Appears: Non-toxic, No Acute Distress - Head Exam Head Exam: ATRAUMATIC, NORMOCEPHALIC - Eye Exam Eye Exam: EOMI, Normal appearance - ENT Exam ENT Exam: Mucous Membranes Moist - Respiratory Exam Respiratory Exam: NORMAL BREATHING PATTERN. absent: Respiratory Distress - Cardiovascular Exam Cardiovascular Exam: REGULAR RHYTHM. absent: Tachycardia - GI/Abdominal Exam GI & Abdominal Exam: Soft, Tenderness (in the RLQ and umbilicus area ) - Extremities Exam Extremities Exam: Normal Inspection. absent: Calf Tenderness - Neurological Exam Neurological Exam: Alert, Awake - Psychiatric Exam Psychiatric exam: Normal Affect, Normal Mood - Skin Skin Exam: Dry, Normal Color, Warm Assessment and Plan - Assessment and Plan (Free Text) Assessment: 41 y/o male w/ abdominal pain, possibly 2/2 early appendicitis Plan: -repeat CT scan of abd/pelvis this am -cont NPO -cont abx -cont ivfS -further recs per Dr. Benson Elizabeth PGY1
[2017-03-01 07:40] LABS: BASO # 0.01 K/mm3 (0.0-2.0); BASO % 0.2 % (0.0-3.0); EOS # 0.1 (0.0-0.7); EOS % 1.2 % (1.5-5.0); GRAN # 3.94 (1.4-6.5); GRAN % 67.3 % (50.0-68.0); HEMATOCRIT 38.8 % (42.0-52.0); LYMPH # 1.4 (1.2-3.4); LYMPH % 23.9 % (22.0-35.0); MEAN CELL VOLUME 92.8 fL (80.0-105.0); MEAN CORPUSCULAR HEMOGLOBIN 31.3 pg (25.0-35.0); MEAN CORPUSCULAR HGB CONC 33.8 g/dl (31.0-37.0); MEAN PLATELET VOLUME 11.4 fl (7.0-11.0); MONO # 0.4 (0.1-0.6); MONO % 7.4 % (1.0-6.0); PLATELET COUNT 110 10^3/uL (120.0-450.0); RED CELL DISTRIBUTION WIDTH 12.9 % (11.5-14.5); WHITE BLOOD COUNT 5.9 10^3/ul (4.5-11.0)
[2017-03-01 08:02] LABS: ALB/GLOB RATIO 1.4 (1.1-1.8); ALKALINE PHOSPHATASE 46 U/L (38-133); ALT/SGPT 46 U/L (7-56); AST/SGOT 29 U/L (15-59); BILIRUBIN,TOTAL 0.9 mg/dL (0.2-1.3); BLOOD UREA NITROGEN 11 mg/dL (7-21); CALCIUM 8.4 mg/dL (8.4-10.5); CARBON DIOXIDE 28 mmol/L (21-33); CHLORIDE 106 mmol/L (98-107); GFR AFRICAN-AMERICAN > 60; GLUCOSE,RANDOM 89 mg/dL (70-110); POTASSIUM 3.8 mmol/L (3.6-5.0); SODIUM 139 mmol/L (132-148); TOTAL PROTEIN 6.2 g/dL (5.8-8.3)
[2017-03-01] MEDS: cefTRIAXone 1 gm 1 GM/100 ML BAG IVPB SCH (09:19)
[2017-03-01] MEDS ORDERED: cefTRIAXone (Rocephin) 1 gm Inj ONE (09:20)
[2017-03-01] MEDS ORDERED: Bupivacaine 0.5% Inj(30mL) ONE (09:20)
[2017-03-01] MEDS ORDERED: Iodixanol 320 MG/ML 100 ML BOTTLE IV ONE (09:46)
[2017-03-01] MEDS ORDERED: Propofol 10 mg/ml Inj (20 ML) ONE (10:28)
[2017-03-01] MEDS ORDERED: Succinylcholine 200 mg/10 ml Inj IV ONE (10:28)
[2017-03-01] MEDS ORDERED: Rocuronium 10 mg/ml (5 ml) ONE (10:28)
[2017-03-01] MEDS ORDERED: Midazolam 2 MG/2 ML VIAL ONE (10:28)
--- NOTE | 2017-03-01 11:16 | CP.PCM.PN ---
<Tiago Munoz - Last Filed: 03/01/17 11:16> Subjective - Date & Time of Evaluation Date of Evaluation: 03/01/17 Time of Evaluation: 11:00 - Subjective Subjective: Medicine progress note. Attending: Dr. Wakefield Pt seen and examined at bedside. No acute distress. No events overnight. Pt for repeat ct scan. No fevers, chills, vomiting, some diarrhea. Objective - Vital Signs/Intake and Output Vital Signs (last 24 hours): Temp Pulse Resp BP Pulse Ox 98.4 F 52 L 13 141/85 97 03/01/17 10:05 03/01/17 10:05 03/01/17 10:05 03/01/17 10:05 03/01/17 10:05 Intake and Output: 03/01/17 03/01/17 06:59 18:59 Intake Total 2640 Balance 2640 - Medications Medications: Current Medications Acetaminophen (Tylenol 325mg Tab) 650 mg PO Q6H PRN PRN Reason: Fever >100.4 F Hydromorphone HCl (Dilaudid) 0.5 mg IVP Q3H PRN PRN Reason: Pain, moderate (4-7) Last Admin: 02/28/17 21:30 Dose: 0.5 mg Sodium Chloride (Sodium Chloride 0.9%) 1,000 mls @ 100 mls/hr IV .Q10H [facility] Last Admin: 03/01/17 09:24 Dose: 100 mls/hr Metronidazole (Flagyl) 250 mg in 50 mls @ 100 mls/hr IVPB Q8 [facility] PRN Reason: Protocol Stop: 03/05/17 14:01 Last Admin: 03/01/17 05:30 Dose: 100 mls/hr Ceftriaxone Sodium (Rocephin 1 Gram Ivpb) 1 gm in 100 mls @ 100 mls/hr IVPB DAILY [facility] PRN Reason: Protocol Last Admin: 03/01/17 09:19 Dose: 100 mls/hr Ketorolac Tromethamine (Toradol) 15 mg IVP Q6 PRN PRN Reason: Pain, severe (8-10) Ondansetron HCl (Zofran Inj) 4 mg IVP Q6 PRN PRN Reason: Nausea/Vomiting Last Admin: 02/28/17 17:37 Dose: 4 mg Pantoprazole Sodium (Protonix Inj) 40 mg IVP DAILY [facility] Last Admin: 03/01/17 09:18 Dose: 40 mg - Labs Labs: 03/01/17 05:30 03/01/17 05:30 PT 10.7 Seconds (9.9-11.8) 02/27/17 12:20 INR 0.99 (0.93-1.08) 02/27/17 12:20 APTT 25.9 Seconds (23.7-30.8) 02/27/17 12:20 - Constitutional Appears: Non-toxic, No Acute Distress - Head Exam Head Exam: ATRAUMATIC, NORMAL INSPECTION, NORMOCEPHALIC - Eye Exam Eye Exam: EOMI - ENT Exam ENT Exam: Mucous Membranes Moist - Neck Exam Neck Exam: Full ROM, Normal Inspection - Respiratory Exam Respiratory Exam: NORMAL BREATHING PATTERN. absent: Respiratory Distress - Cardiovascular Exam Cardiovascular Exam: +S1, +S2 - GI/Abdominal Exam GI & Abdominal Exam: Tenderness, Normal Bowel Sounds. absent: Guarding Additional comments: Mild tenderness rlq - Extremities Exam Extremities Exam: Full ROM, Normal Inspection - Neurological Exam Neurological Exam: Alert, Awake, Oriented x3 - Psychiatric Exam Psychiatric exam: Normal Affect, Normal Mood - Skin Skin Exam: Dry, Intact, Normal Color, Warm Assessment and Plan - Assessment and Plan (Free Text) Assessment: This is a 41 yo male with PMH of hiatal hernia presents to ED with vomiting, chest pain and abd pain. CT abd with PO contrast showed slight prominence of appendix, no periappendiceal infiltration. possible early appendicitis. Plan: 1. abd pain with emesis - CT abd with PO contrast showed slight prominence of appendix, no periappendiceal infiltration. possible early appendicitis. - surgery consult - liquid diet, advance as tolerated>>> changed to NPO for now - toradol for pain prn - stool blood occult pending - stool cultures pending -repeat ct scan this am 2. chest pain - reproducible with palpitation, most likely MSK - trop neg x1, EKG showed sinus bradycardia -cardio consult. recs appreciated. ppx GI- protonix DVT- activity as tolerated discussed with Dr. Wakefield. <Charley Wakefield - Last Filed: 03/02/17 08:49> Objective - Vital Signs/Intake and Output Vital Signs (last 24 hours): Temp Pulse Resp BP Pulse Ox 98.5 F 44 L 20 135/89 99 03/01/17 17:59 03/02/17 06:00 03/01/17 17:59 03/01/17 17:59 03/01/17 13:01 Intake and Output: 03/02/17 03/02/17 06:59 18:59 Intake Total 0 Output Total 600 Balance -600 - Medications Medications: Current Medications Acetaminophen (Tylenol 325mg Tab) 650 mg PO Q6H PRN PRN Reason: Fever >100.4 F Enoxaparin Sodium (Lovenox) 40 mg SC DAILY [facility] PRN Reason: Protocol Sodium Chloride (Sodium Chloride 0.9%) 1,000 mls @ 100 mls/hr IV .Q10H [facility] Last Admin: 03/01/17 14:24 Dose: 100 mls/hr Metronidazole (Flagyl) 250 mg in 50 mls @ 100 mls/hr IVPB Q8 [facility] PRN Reason: Protocol Stop: 03/05/17 14:01 Last Admin: 03/02/17 05:42 Dose: 100 mls/hr Ceftriaxone Sodium (Rocephin 1 Gram Ivpb) 1 gm in 100 mls @ 100 mls/hr IVPB DAILY [facility] PRN Reason: Protocol Last Admin: 03/01/17 09:19 Dose: 100 mls/hr Ibuprofen (Motrin Tab) 600 mg PO Q6H PRN PRN Reason: Pain, Mild (1-3) Metoclopramide HCl (Reglan) 10 mg IV ONCE PRN PRN Reason: Nausea/Vomiting Ondansetron HCl (Zofran Inj) 4 mg IVP Q6 PRN PRN Reason: Nausea/Vomiting Last Admin: 02/28/17 17:37 Dose: 4 mg Oxycodone/Acetaminophen (Percocet 5/325 Mg Tab) 1 tab PO Q4H PRN PRN Reason: Pain, moderate (4-7) Stop: 03/05/17 08:04 Oxycodone/Acetaminophen (Percocet 5/325 Mg Tab) 2 tab PO Q4H PRN PRN Reason: Pain, severe (8-10) Stop: 03/05/17 08:04 Pantoprazole Sodium (Protonix Inj) 40 mg IVP DAILY [facility] Last Admin: 03/01/17 09:18 Dose: 40 mg Potassium Chloride (Potassium Chloride Oral Soln) 40 meq PO ONCE ONE Stop: 03/02/17 08:45 - Labs Labs: 03/02/17 06:45 03/02/17 06:45 PT 10.7 Seconds (9.9-11.8) 02/27/17 12:20 INR 0.99 (0.93-1.08) 02/27/17 12:20 APTT 25.9 Seconds (23.7-30.8) 02/27/17 12:20 Attending/Attestation - Attestation I have personally seen and examined this patient.: Yes I have fully participated in the care of the patient.: Yes I have reviewed all pertinent clinical information, including history, physical exam and plan: Yes Notes (Text): 03/01/17 41 year old male who presented with complaint of chest pain and abdominal pain. CT abd/pelvis showed slight prominence of appendix with possible early appendicitis. Patient is NPO on iv fluids and antibiotics. Surgery is following and plan is for repeat CT abd/pelvis and possible lap appe today. Serial cardiac enzymes were negative and ACS was ruled out. He also has sinus bradycardia for which cardiology is following. Echocardiogram is ordered and pending. Charley Wakefield MD Hospitalist.
[2017-03-01] MEDS ORDERED: Neostigmine Methylsulfate 3mg/3ml Syringe IV ONE (11:42)
[2017-03-01] MEDS ORDERED: Lactated Ringer's 1,000 ML IV SCH (12:03)
[2017-03-01] MEDS: HYDROmorphone 0.5 mg/0.5 ml ISec IVP PRN ×4 (12:05→21:09)
[2017-03-01] MEDS ORDERED: HYDROmorphone 0.5 mg/0.5 ml ISec ONE ×2 (12:05→12:23)
--- NOTE | 2017-03-01 12:07 | PCM.SURG1 ---
Surgeon's Initial Post Op Note - Surgeon's Notes Surgeon: Benson Local Telephone Operator: PGY3 Type of Anesthesia: General Endo, Local Pre-Operative Diagnosis: Abdominal pain Operative Findings: Intra-abdominal fluid, few adhesions, large appendix Post-Operative Diagnosis: Abdominal pain Operation Performed: Diagnostic laparoscopy, laparoscopic appendectomy Specimen/Specimens Removed: appendix Estimated Blood Loss: EBL {In ML}: 5 Blood Products Given: N/A Drains Used: No Drains Post-Op Condition: Good Date of Surgery/Procedure: 03/01/17 Time of Surgery/Procedure: 10:45
[2017-03-01 12:49] VITALS: O2SAT 99
--- NOTE | 2017-03-01 12:57 | CT ---
PROCEDURE: CT Abdomen and Pelvis with contrast HISTORY: abd pain COMPARISON: None. TECHNIQUE: Contrast dose: 100 cc of Visipaque Radiation dose: Total exam DLP = 562 mGy-cm. This CT exam was performed using one or more of the following dose reduction techniques: Automated exposure control, adjustment of the mA and/or kV according to patient size, and/or use of iterative reconstruction technique. FINDINGS: LOWER THORAX: Unremarkable. LIVER: Unremarkable. No gross lesion or ductal dilatation. GALLBLADDER AND BILE DUCTS: Unremarkable. PANCREAS: Unremarkable. No gross lesion or ductal dilatation. SPLEEN: Unremarkable. ADRENALS: Unremarkable. No mass. KIDNEYS AND URETERS: Unremarkable. No hydronephrosis. No solid mass. VASCULATURE: Unremarkable. No aortic aneurysm. BOWEL: There is mild mural thickening in the colon which may represent colitis APPENDIX: Normal appendix. PERITONEUM: Unremarkable. No free fluid. No free air. LYMPH NODES: Unremarkable. No enlarged lymph nodes. BLADDER: Unremarkable. REPRODUCTIVE: Unremarkable. 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 There is no associated spondylolisthesis. OTHER FINDINGS: None. IMPRESSION: Mild mural thickening in the colon consistent with mild colitis. The appendix is normal
--- NOTE | 2017-03-01 13:23 | PN ---
DATE: 03/01/2017 REASON FOR CONSULTATION AND FOLLOWUP: Bradycardia. ____ possible appendectomy this morning. BRIEF CLINICAL HISTORY: A 41-year-old male with no significant past medical history admitted with ab dominal pain, diarrhea, possible acute appendicitis pain in right lower quadrant, found to be bradyca rdic. Cardiology consult was called. The patient is going for a CAT scan and then to be a possible appendectomy this morning, laparoscopic appendectomy this morning. Denies any chest pain, shortness of breath, any palpitation. Complainin g of abdominal pain. PHYSICAL EXAMINATION: VITAL SIGNS: Temperature afebrile, heart rate 52, blood pressure 14____/85. HEENT: PERRLA. Extraocular muscles intact. NECK: Supple. No carotid bruits. No thyromegaly. CHEST: Clear to auscultation. HEART: S1, S2 regular. ABDOMEN: Soft. EXTREMITIES: Clubbing and cyanosis negative. LABORATORY DATA: Blood workup as follows: WBC 5.9, hemoglobin 13.____, hematocrit 38.8, platelet co unt 110. Chemistry shows sodium 13____, potassium 3.____, chloride 106, carbon dioxide 28, anion gap of 9. BUN 11, creatinine 1.0. Troponin 0.01. EKG shows ____, sinus brielle. IMPRESSION: Acute appendicitis, possibly going for appendectomy this morning. Went for a CAT scan t his morning. Bradycardia probably is secondary to young man possibly athletic atypical chest pain. RECOMMENDATION: The patient is cleared from cardiac point of view for appendectomy if needed. Disc ussed with the patient. The patient is going for CAT scan and then possible appendectomy. No contra indication for surgery. We will follow with you. Thank you, Dr. Wakefield, for providing the opportunity in taking care of the patient. Lynn Swann MD cc: [id number] TT: 03/01/2017 12:23:28 Confirmation # [id number] Dictation # [id number] keyla
[2017-03-01 17:59] VITALS: RESP 20; TEMP 98.5
[2017-03-02] MEDS: metroNIDAZOLE IV 250mg/50 ml 250 MG/50 ML BAG IVPB SCH ×2 (05:42→14:57)
[2017-03-02 07:10] LABS: ADD MANUAL DIFF? NO
[2017-03-02 07:15] LABS: BASO # 0.01 K/mm3 (0.0-2.0); BASO % 0.2 % (0.0-3.0); EOS # 0.1 (0.0-0.7); EOS % 1.2 % (1.5-5.0); GRAN # 4.23 (1.4-6.5); GRAN % 71.3 % (50.0-68.0); HEMATOCRIT 39.9 % (42.0-52.0); LYMPH # 1.1 (1.2-3.4); LYMPH % 17.9 % (22.0-35.0); MEAN CELL VOLUME 94.3 fL (80.0-105.0); MEAN CORPUSCULAR HEMOGLOBIN 31.2 pg (25.0-35.0); MEAN CORPUSCULAR HGB CONC 33.1 g/dl (31.0-37.0); MEAN PLATELET VOLUME 11.8 fl (7.0-11.0); MONO # 0.6 (0.1-0.6); MONO % 9.4 % (1.0-6.0); PLATELET COUNT 107 10^3/uL (120.0-450.0); RED CELL DISTRIBUTION WIDTH 12.8 % (11.5-14.5); WHITE BLOOD COUNT 5.9 10^3/ul (4.5-11.0)
[2017-03-02 07:45] LABS: ALB/GLOB RATIO 1.4 (1.1-1.8); ALKALINE PHOSPHATASE 51 U/L (38-133); ALT/SGPT 43 U/L (7-56); AST/SGOT 24 U/L (15-59); BLOOD UREA NITROGEN 8 mg/dL (7-21); CALCIUM 8.6 mg/dL (8.4-10.5); CARBON DIOXIDE 27 mmol/L (21-33); CHLORIDE 103 mmol/L (98-107); GFR AFRICAN-AMERICAN > 60; GLUCOSE,RANDOM 83 mg/dL (70-110); POTASSIUM 3.5 mmol/L (3.6-5.0); SODIUM 137 mmol/L (132-148)
[2017-03-02] MEDS ORDERED: Oxycodone/Acetaminophen 5/325 mg Tab PO PRN ×2 (08:03)
[2017-03-02] MEDS ORDERED: Potassium Chloride 40 mEq/30 ml LIQ UD PO ONE (08:44)
[2017-03-02] MEDS: cefTRIAXone 1 gm 1 GM/100 ML BAG IVPB SCH (09:18)
[2017-03-02] MEDS: Sodium Chloride 0.9% 1,000 ML IV SCH (09:20)
[2017-03-02] MEDS ORDERED: Enoxaparin 40 mg Syringe SC SCH (10:00)
--- NOTE | 2017-03-02 10:02 | CP.PCM.PN ---
Subjective - Date & Time of Evaluation Date of Evaluation: 03/02/17 Time of Evaluation: 06:50 - Subjective Subjective: General Surgery Pt S&E, NAEO. Pt feeling better this AM. Tolerated PO. Using IS. Pain controlled by meds. No other C/O. Objective - Vital Signs/Intake and Output Vital Signs (last 24 hours): Temp Pulse Resp BP Pulse Ox 98.5 F 44 L 20 135/89 99 03/01/17 17:59 03/02/17 06:00 03/01/17 17:59 03/01/17 17:59 03/01/17 13:01 Intake and Output: 03/02/17 03/02/17 06:59 18:59 Intake Total 0 Output Total 600 Balance -600 - Medications Medications: Current Medications Acetaminophen (Tylenol 325mg Tab) 650 mg PO Q6H PRN PRN Reason: Fever >100.4 F Enoxaparin Sodium (Lovenox) 40 mg SC DAILY [facility] PRN Reason: Protocol Last Admin: 03/02/17 09:19 Dose: 40 mg Sodium Chloride (Sodium Chloride 0.9%) 1,000 mls @ 100 mls/hr IV .Q10H [facility] Last Admin: 03/02/17 09:20 Dose: 100 mls/hr Metronidazole (Flagyl) 250 mg in 50 mls @ 100 mls/hr IVPB Q8 [facility] PRN Reason: Protocol Stop: 03/05/17 14:01 Last Admin: 03/02/17 05:42 Dose: 100 mls/hr Ceftriaxone Sodium (Rocephin 1 Gram Ivpb) 1 gm in 100 mls @ 100 mls/hr IVPB DAILY [facility] PRN Reason: Protocol Last Admin: 03/02/17 09:18 Dose: 100 mls/hr Ibuprofen (Motrin Tab) 600 mg PO Q6H PRN PRN Reason: Pain, Mild (1-3) Metoclopramide HCl (Reglan) 10 mg IV ONCE PRN PRN Reason: Nausea/Vomiting Ondansetron HCl (Zofran Inj) 4 mg IVP Q6 PRN PRN Reason: Nausea/Vomiting Last Admin: 02/28/17 17:37 Dose: 4 mg Oxycodone/Acetaminophen (Percocet 5/325 Mg Tab) 1 tab PO Q4H PRN PRN Reason: Pain, moderate (4-7) Stop: 03/05/17 08:04 Oxycodone/Acetaminophen (Percocet 5/325 Mg Tab) 2 tab PO Q4H PRN PRN Reason: Pain, severe (8-10) Stop: 03/05/17 08:04 Pantoprazole Sodium (Protonix Inj) 40 mg IVP DAILY [facility] Last Admin: 03/02/17 09:19 Dose: 40 mg - Labs Labs: 03/02/17 06:45 03/02/17 06:45 PT 10.7 Seconds (9.9-11.8) 02/27/17 12:20 INR 0.99 (0.93-1.08) 02/27/17 12:20 APTT 25.9 Seconds (23.7-30.8) 02/27/17 12:20 - Constitutional Appears: Non-toxic, No Acute Distress - Head Exam Head Exam: ATRAUMATIC, NORMOCEPHALIC - Eye Exam Eye Exam: EOMI. absent: Scleral icterus - Respiratory Exam Respiratory Exam: NORMAL BREATHING PATTERN. absent: Respiratory Distress - GI/Abdominal Exam GI & Abdominal Exam: Guarding (mild), Soft, Tenderness (at incision sites). absent: Distended, Firm, Rigid, Rebound Additional comments: dressings C/D/I - Neurological Exam Neurological Exam: Alert, Awake, Oriented x3 - Skin Skin Exam: Dry, Warm Assessment and Plan - Assessment and Plan (Free Text) Assessment: 41M POD#1 s/p Diagnostic laparoscopy, laparoscopic appendectomy Plan: Changed pain meds to PO Stool softener Encouraged ambulation and IS use Ok for D/C from a surgical standpoint with pain meds and stool softener Follow up in [address] Knowles's office D/W Dr Benson Brown PGY3
[2017-03-02] MEDS ORDERED: Bisacodyl 5mg EC Tab PO ONE (10:14)
[2017-03-02] MEDS ORDERED: Potassium Chloride 20 mEq ER Tab PO ONE (10:14)
--- NOTE | 2017-03-02 10:46 | PN ---
DATE: 03/02/2017 REASON FOR CONSULTATION AND FOLLOWUP: Bradycardia, possible bradycardia, is status post appendectomy , asymptomatic. BRIEF CLINICAL HISTORY: A 41-year-old male with no significant past medical history admitted with ab dominal pain, diarrhea, appendicitis, underwent appendectomy. Baseline the patient's bradycardia hem odynamically stable. PHYSICAL EXAMINATION: VITAL SIGNS: Temperature afebrile, heart rate 44, blood pressure 135/89. HEENT: PERRLA. Extraocular muscles intact. NECK: Supple. No carotid bruits. No thyromegaly. CHEST: Clear to auscultation. HEART: S1, S2 regular. ABDOMEN: Soft. EXTREMITIES: Clubbing and cyanosis negative. LABORATORY DATA: Blood workup as follows: WBC 5.9, hemoglobin 13, hematocrit 39.9, platelet count 1 07. Chemistry shows sodium 137, potassium 3.5, chloride 103, carbon dioxide 2___, anion gap of 11. BUN 8, creatinine 1.1. IMPRESSION: Hypokalemia, bradycardia. Possibly this low heart rate is secondary to athletic heart, hemodynamically stable. We will discontinue telemetry, supplement potassium. We will follow with collin tejeda. Thank you, Dr. Wakefield, for providing the opportunity in taking care of the patient. Lynn Swann MD cc: [id number] TT: 03/02/2017 10:45:10 Confirmation # [id number] Dictation # [id number] keyla
[2017-03-02 12:09] VITALS: BP 133/83; PULSE 58
--- NOTE | 2017-03-02 14:42 | CP.PCM.DIS ---
<Tiago Munoz - Last Filed: 03/02/17 14:43> Provider - Provider Date of Admission: 02/27/17 19:29 Attending physician: Charley Wakefield MD Primary care physician: Jeffrey Haywood MD Consults: 1. Shree Knowles Time Spent in preparation of Discharge (in minutes): 45 Hospital Course - Lab Results Lab Results: Most Recent Lab Values WBC 5.9 10^3/ul (4.5-11.0) 03/02/17 06:45 RBC 4.23 10^6/uL (3.5-6.1) 03/02/17 06:45 Hgb 13.2 gm/dL (14.0-18.0) L 03/02/17 06:45 Hct 39.9 % (42.0-52.0) L 03/02/17 06:45 MCV 94.3 fL (80.0-105.0) 03/02/17 06:45 MCH 31.2 pg (25.0-35.0) 03/02/17 06:45 MCHC 33.1 g/dl (31.0-37.0) 03/02/17 06:45 RDW 12.8 % (11.5-14.5) 03/02/17 06:45 Plt Count 107 10^3/uL (120.0-450.0) L 03/02/17 06:45 MPV 11.8 fl (7.0-11.0) H 03/02/17 06:45 Gran % 71.3 % (50.0-68.0) H 03/02/17 06:45 Lymph % (Auto) 17.9 % (22.0-35.0) L 03/02/17 06:45 [place] % (Auto) 9.4 % (1.0-6.0) H 03/02/17 06:45 Eos % (Auto) 1.2 % (1.5-5.0) L 03/02/17 06:45 Baso % (Auto) 0.2 % (0.0-3.0) 03/02/17 06:45 Gran # 4.23 (1.4-6.5) 03/02/17 06:45 Lymph # 1.1 (1.2-3.4) L 03/02/17 06:45 [place] # 0.6 (0.1-0.6) 03/02/17 06:45 Eos # 0.1 (0.0-0.7) 03/02/17 06:45 Baso # 0.01 K/mm3 (0.0-2.0) 03/02/17 06:45 PT 10.7 Seconds (9.9-11.8) 02/27/17 12:20 INR 0.99 (0.93-1.08) 02/27/17 12:20 APTT 25.9 Seconds (23.7-30.8) 02/27/17 12:20 Sodium 137 mmol/L (132-148) 03/02/17 06:45 Potassium 3.5 mmol/L (3.6-5.0) L 03/02/17 06:45 Chloride 103 mmol/L (98-107) 03/02/17 06:45 Carbon Dioxide 27 mmol/L (21-33) 03/02/17 06:45 Anion Gap 11 (10-20) 03/02/17 06:45 BUN 8 mg/dL (7-21) 03/02/17 06:45 Creatinine 1.1 mg/dL (0.5-1.4) 03/02/17 06:45 Est GFR ( Amer) > 60 03/02/17 06:45 Est GFR (Non-Af Amer) > 60 03/02/17 06:45 Random Glucose 83 mg/dL (70-110) 03/02/17 06:45 Calcium 8.6 mg/dL (8.4-10.5) 03/02/17 06:45 Total Bilirubin 1.0 mg/dL (0.2-1.3) 03/02/17 06:45 AST 24 U/L (15-59) 03/02/17 06:45 ALT 43 U/L (7-56) 03/02/17 06:45 Alkaline Phosphatase 51 U/L (38-133) 03/02/17 06:45 Lactate Dehydrogenase 366 U/L (333-699) 02/28/17 21:55 Total Creatine Kinase 619 U/L (35-230) H 02/28/17 21:55 CK-MB (CK-2) 1.7 ng/mL (0.0-3.6) 02/28/17 21:55 CK-MB (CK-2) % Cancelled 02/27/17 12:00 Troponin I < 0.01 ng/mL 02/28/17 21:55 Total Protein 6.0 g/dL (5.8-8.3) 03/02/17 06:45 Albumin 3.5 g/dL (3.0-4.8) 03/02/17 06:45 Globulin 2.5 gm/dL 03/02/17 06:45 Albumin/Globulin Ratio 1.4 (1.1-1.8) 03/02/17 06:45 Lipase 34 U/L (23-300) 02/27/17 12:20 TSH 3rd Generation 4.41 mIU/mL (0.46-4.68) 03/01/17 05:30 Urine Color Yellow (YELLOW) 02/27/17 14:20 Urine Appearance Clear (CLEAR) 02/27/17 14:20 Urine pH 8.5 (4.7-8.0) 02/27/17 14:20 Ur Specific [place] 1.020 (1.005-1.035) 02/27/17 14:20 Urine Protein Trace mg/dL (<30 mg/dL) H 02/27/17 14:20 Urine Glucose (UA) Negative mg/dL (NEGATIVE) 02/27/17 14:20 Urine Ketones >=80 mg/dL (NEGATIVE) 02/27/17 14:20 Urine Blood Negative (NEGATIVE) 02/27/17 14:20 Urine Nitrate Negative (NEGATIVE) 02/27/17 14:20 Urine Bilirubin Negative (NEGATIVE) 02/27/17 14:20 Urine Urobilinogen 0.2 E.U./dL (<1 E.U./dL) 02/27/17 14:20 Ur Leukocyte Esterase Negative [place]/uL (NEGATIVE) 02/27/17 14:20 Urine RBC Negative /hpf (0-2) 02/27/17 14:20 Urine WBC 1 - 3 /hpf (0-6) 02/27/17 14:20 Ur Epithelial Cells 1 - 3 /hpf (0-5) 02/27/17 14:20 Urine Bacteria Few (NEG) 02/27/17 14:20 - Hospital Course Hospital Course: Attending: Dr. Wakefield Admit date 03/01 DC date 03/02 Procedures lap appy No complications Consults Shree Knowles Stable for dc HPI: see h/p Lab data: see lab section Hospital course 41 yo male with PMH of hiatal hernia presents to ED with vomiting, chest pain and abd pain. Patient states that the non-bloody emesis began yesterday night, he states he has had multiple episodes throughout the days. He states shortly after he began to vomiting he started to have chest pain, on the left side. The pain was constant, worse with his episodes of vomiting. He reports that the pain is worse with deep inspiration. He denies previous similar pain. He also reports diarrhea with small amount of bright red blood. He attempts to have cold sweats, denies fever, chills, headache, cough, urinary symptoms. 1. abd pain with emesis - CT abd with PO contrast showed slight prominence of appendix, no periappendiceal infiltration. possible early appendicitis. - surgery consult - liquid diet, advance as tolerated>>> changed to NPO -repeat ct showed mild colitis, normal appx -pt brought to or for lap appy -pt tolerated procedure well -toradol for pain prn - stool blood occult pending -stool cultures pending -pt to be given po cipro and flagyl for dc 2. chest pain /bradycardia - reproducible with palpitation, most likely MSK - EKG showed sinus bradycardia -cardio consult. recs appreciated. -Dr. Swann evaluated him and cleared him for sx and discharge. ppx GI- protonix DVT- activity as tolerated DC meds 1. cipro 500 mg po bid for 7 days 2. flagyl po q 8 hrs for 7 days DC instructions Please return if condition worsens. Pt medically stable for dc. Please take cipro and flagyl for dc. Please f/u with sx. - Date & Time of H&P Date of H&P: 03/01/17 Time of H&P: 04:49 Discharge Exam - Head Exam Head Exam: ATRAUMATIC, NORMAL INSPECTION, NORMOCEPHALIC - Eye Exam Eye Exam: EOMI - ENT Exam ENT Exam: Normal Exam - Respiratory Exam Respiratory Exam: NORMAL BREATHING PATTERN, UNREMARKABLE - Cardiovascular Exam Cardiovascular Exam: +S1, +S2 - GI/Abdominal Exam GI & Abdominal Exam: Normal Bowel Sounds, Tenderness - Extremities Exam Extremities exam: full ROM, normal inspection - Back Exam Back exam: NORMAL INSPECTION - Neurological Exam Neurological exam: Alert, CN II-XII Intact, Oriented x3 - Psychiatric Exam Psychiatric exam: Normal Affect, Normal Mood - Skin Skin Exam: Dry, Intact, Normal Color, Warm Discharge Plan - Discharge Medications Prescriptions: Ciprofloxacin [Cipro] 500 mg PO BID #14 tab Metronidazole [Flagyl] 500 mg PO Q8 #21 tab - Follow Up Plan Condition: STABLE Disposition: HOME/ ROUTINE Instructions: Chest Pain (ED) Additional Instructions: Please follow up with your primary medical doctor within one week of discharge. Come back to the ER if chest pain occurs. Referrals: Jeffrey Haywood MD [Primary Care Provider] - <Charley Wakefield - Last Filed: 03/04/17 06:40> Provider - Provider Date of Admission: 02/27/17 19:29 Attending physician: Charley Wakefield MD Primary care physician: Jeffrey Haywood MD Hospital Course - Lab Results Lab Results: Most Recent Lab Values WBC 5.9 10^3/ul (4.5-11.0) 03/02/17 06:45 RBC 4.23 10^6/uL (3.5-6.1) 03/02/17 06:45 Hgb 13.2 gm/dL (14.0-18.0) L 03/02/17 06:45 Hct 39.9 % (42.0-52.0) L 03/02/17 06:45 MCV 94.3 fL (80.0-105.0) 03/02/17 06:45 MCH 31.2 pg (25.0-35.0) 03/02/17 06:45 MCHC 33.1 g/dl (31.0-37.0) 03/02/17 06:45 RDW 12.8 % (11.5-14.5) 03/02/17 06:45 Plt Count 107 10^3/uL (120.0-450.0) L 03/02/17 06:45 MPV 11.8 fl (7.0-11.0) H 03/02/17 06:45 Gran % 71.3 % (50.0-68.0) H 03/02/17 06:45 Lymph % (Auto) 17.9 % (22.0-35.0) L 03/02/17 06:45 [place] % (Auto) 9.4 % (1.0-6.0) H 03/02/17 06:45 Eos % (Auto) 1.2 % (1.5-5.0) L 03/02/17 06:45 Baso % (Auto) 0.2 % (0.0-3.0) 03/02/17 06:45 Gran # 4.23 (1.4-6.5) 03/02/17 06:45 Lymph # 1.1 (1.2-3.4) L 03/02/17 06:45 [place] # 0.6 (0.1-0.6) 03/02/17 06:45 Eos # 0.1 (0.0-0.7) 03/02/17 06:45 Baso # 0.01 K/mm3 (0.0-2.0) 03/02/17 06:45 PT 10.7 Seconds (9.9-11.8) 02/27/17 12:20 INR 0.99 (0.93-1.08) 02/27/17 12:20 APTT 25.9 Seconds (23.7-30.8) 02/27/17 12:20 Sodium 137 mmol/L (132-148) 03/02/17 06:45 Potassium 3.5 mmol/L (3.6-5.0) L 03/02/17 06:45 Chloride 103 mmol/L (98-107) 03/02/17 06:45 Carbon Dioxide 27 mmol/L (21-33) 03/02/17 06:45 Anion Gap 11 (10-20) 03/02/17 06:45 BUN 8 mg/dL (7-21) 03/02/17 06:45 Creatinine 1.1 mg/dL (0.5-1.4) 03/02/17 06:45 Est GFR ( Amer) > 60 03/02/17 06:45 Est GFR (Non-Af Amer) > 60 03/02/17 06:45 Random Glucose 83 mg/dL (70-110) 03/02/17 06:45 Calcium 8.6 mg/dL (8.4-10.5) 03/02/17 06:45 Total Bilirubin 1.0 mg/dL (0.2-1.3) 03/02/17 06:45 AST 24 U/L (15-59) 03/02/17 06:45 ALT 43 U/L (7-56) 03/02/17 06:45 Alkaline Phosphatase 51 U/L (38-133) 03/02/17 06:45 Lactate Dehydrogenase 366 U/L (333-699) 02/28/17 21:55 Total Creatine Kinase 619 U/L (35-230) H 02/28/17 21:55 CK-MB (CK-2) 1.7 ng/mL (0.0-3.6) 02/28/17 21:55 CK-MB (CK-2) % Cancelled 02/27/17 12:00 Troponin I < 0.01 ng/mL 02/28/17 21:55 Total Protein 6.0 g/dL (5.8-8.3) 03/02/17 06:45 Albumin 3.5 g/dL (3.0-4.8) 03/02/17 06:45 Globulin 2.5 gm/dL 03/02/17 06:45 Albumin/Globulin Ratio 1.4 (1.1-1.8) 03/02/17 06:45 Lipase 34 U/L (23-300) 02/27/17 12:20 TSH 3rd Generation 4.41 mIU/mL (0.46-4.68) 03/01/17 05:30 Urine Color Yellow (YELLOW) 02/27/17 14:20 Urine Appearance Clear (CLEAR) 02/27/17 14:20 Urine pH 8.5 (4.7-8.0) 02/27/17 14:20 Ur Specific [place] 1.020 (1.005-1.035) 02/27/17 14:20 Urine Protein Trace mg/dL (<30 mg/dL) H 02/27/17 14:20 Urine Glucose (UA) Negative mg/dL (NEGATIVE) 02/27/17 14:20 Urine Ketones >=80 mg/dL (NEGATIVE) 02/27/17 14:20 Urine Blood Negative (NEGATIVE) 02/27/17 14:20 Urine Nitrate Negative (NEGATIVE) 02/27/17 14:20 Urine Bilirubin Negative (NEGATIVE) 02/27/17 14:20 Urine Urobilinogen 0.2 E.U./dL (<1 E.U./dL) 02/27/17 14:20 Ur Leukocyte Esterase Negative [place]/uL (NEGATIVE) 02/27/17 14:20 Urine RBC Negative /hpf (0-2) 02/27/17 14:20 Urine WBC 1 - 3 /hpf (0-6) 02/27/17 14:20 Ur Epithelial Cells 1 - 3 /hpf (0-5) 02/27/17 14:20 Urine Bacteria Few (NEG) 02/27/17 14:20 Attending/Attestation - Attestation I have personally seen and examined this patient.: Yes I have fully participated in the care of the patient.: Yes I have reviewed all pertinent clinical information, including history, physical exam and plan: Yes Notes (Text): 03/02/17 41 year old male who presented with complaint of chest pain and abdominal pain. Initial CT abd/pelvis showed slight prominence of appendix with possible early appendicitis. He was NPO with analgesics, iv fluids and antibiotics. He was seen by surgery and celestina garcia. Same day he had a repeat CT which showed mild colitis. His pain improved. His diet was advanced which he tolerated. Serial cardiac enzymes were negative and ACS was ruled out. He was seen by cardiology for chest pain and bradycardia. Echocardiogram was reviewed with associate professor of literature. He is cleared for discharge. Patient is discharged home to follow up with his pmd. Follow up with surgery. Continue with po antibiotics as prescribed. Charley Wakefield MD Hospitalist.
--- NOTE | 2017-03-04 16:58 | OP ---
PROCEDURE DATE: 03/01/2017 PREOPERATIVE DIAGNOSIS: Abdominal pain. POSTOPERATIVE DIAGNOSIS: Abdominal pain. OPERATION PERFORMED: Laparoscopic appendectomy. SURGEON: Dr. Knowles. DESCRIPTION OF PROCEDURE: In the operating room, the patient was identified by name, number, procedu ral laterality, my freddy, the consent. Preoperative workup showed right lower quadrant pain without a real source. The CAT scan of the appendix was probably normal, although was somewhat dilated. It w as consistent right lower quadrant pain and, as he has been in the hospital for this before, laparosc opy was indicated. In the operating room, the patient, having been identified with the successful timeout, the abdomen w as accessed through the umbilicus with a Veress needle followed by the Visiport. The abdomen was ent ered and the appendix visualized. The liver was normal. The gallbladder was normal. Stomach, duode num, colon were normal. The omentum was picked up distally. The omentum was examined. There is no evidence of Meckel's. There was fluid in the pelvis, but there was nothing else untoward. The dista l small bowel showed no evidence of Crohn's. It was normal. The cecum was normal. It was rolled an teriorly, exposing the tip of the appendix and the base was followed serially with Prestige clamps. The mesentery was held up and divided with the Harmonic scalpel. The base was then taken with a TA-3 0 using the 5 mm scope. The base was normal, well dissected. It was placed in a bag and removed wit hout dilation. The defect was closed with an EndoStitch. The patient taken to recovery room in good condition after sponge and needle counts declared correct, and we looked around looking for anything untoward. The incision was closed after CO2 was removed. The incisions were closed with PDS and Dermabond. The patient was taken to recovery room without in cident. Kwesi Knowles MD cc: [phone] TT: 03/04/2017 16:57:05 deon
--- NOTE | 2017-03-09 12:32 | CARD ---
APPROVED REPORT EXAM: Two-dimensional and M-mode echocardiogram with Doppler and color Doppler. INDICATION Chest Pain BRADYCARDIA 2D DIMENSIONS Left Atrium (2D)4.0 (1.6-4.0cm)IVSd1.0 (0.7-1.1cm) LVDd4.6 (3.9-5.9cm)PWd1.1 (0.7-1.1cm) LVDs2.9 (2.5-4.0cm)FS (%) 36.3 % LVEF (%)66.1 (>50%) M-Mode DIMENSIONS Aortic Root2.70 (2.2-3.7cm)Aortic Cusp Exc.2.20 (1.5-2.0cm) Aortic Valve AoV Peak Mizuoetp509.0cm/Jada Peak GR.7mmHg Mitral Valve MV E Jyfqhyyb23.3cm/sMV A Hlwibajb14.1cm/sE/A ratio1.0 TDI E/Lateral E'0.0E/Medial E'0.0 Tricuspid Valve TR Peak Tudzweac84jj/sRAP [id number] Peak Gr.4mmHg [id number] LEFT VENTRICLE The left ventricle is normal size. There is normal left ventricular wall thickness. The left ventricular function is normal.EF-60-65% There is normal LV segmental wall motion. The left ventricular diastolic function is normal. No left ventricle thrombus noted on this study. There is no ventricular septal defect visualized. There is no left ventricular aneurysm. There is no mass noted in the left ventricle. RIGHT VENTRICLE The right ventricle is normal size. There is normal right ventricular wall thickness. The right ventricular systolic function is normal. ATRIA The left atrium size is normal. The right atrium size is normal. The interatrial septum is intact with no evidence for an atrial septal defect. AORTIC VALVE The aortic valve is normal in structure. There is trace aortic regurgitation. There is no aortic valvular stenosis. There is no aortic valvular vegetation. MITRAL VALVE The mitral valve is thickened but opens well. Mitral regurgitation is trace. There is no mitral valve stenosis. There is no evidence of mitral valve prolapse. TRICUSPID VALVE The tricuspid valve leaflets are thickened , but open well. There is trace tricuspid regurgitation. There is no tricuspid valve stenosis. There is no tricuspid valve prolapse or vegetation. PULMONIC VALVE The pulmonary valve is normal in structure. There is trace pulmonic valvular regurgitation. There is no pulmonic valvular stenosis. GREAT VESSELS The aortic root is normal in size. The ascending aorta is normal in size. The pulmonary artery is normal. The IVC is normal in size and collapses >50% with inspiration. PERICARDIAL EFFUSION There is no pleural effusion. There is no pericardial effusion. <Conclusion> Normal Chamber SIZE. Ef-60-65% Trace MR/TR/AR/PI RVSP-14 mmof hg. (Normal Echo).
--- NOTE | 2017-03-15 08:36 | OP ---
PROCEDURE DATE: 03/01/2017 PREOPERATIVE DIAGNOSIS: Right lower quadrant pain. POSTOPERATIVE DIAGNOSES: Right lower quadrant pain. OPERATION PERFORMED: Laparoscopic exploration and incidental appendectomy. DESCRIPTION OF PROCEDURE: In the operating room, the patient was identified by name, number, procedu re, laterality, my freddy and his consent. There was right lower quadrant pain without clearer appendi citis on CAT scan in a male. There was no other explaining pain, so laparoscopy went forward. The kathy ramsey was accessed through an umbilical site using a Veress needle followed by the Visiport. Two 5s were then placed in the left lower quadrant and suprapubic. The base of the appendix was identified . The appendix was then taken down serially with Harmonic scalpel followed by the Endo-JOHANNY. The dis hermilo ileum was completely unremarkable as was the colon. There was no hernia. There was a little bit of fluid in the pelvis. There was no evidence of Meckel's or . There was no inflammation of d istal ileum or the cecum. Looking around, the second time, nothing else was untoward. The incision was closed with an EndoStitch followed by subcuticular PDS, Dermabond, the wound was injected with Ma rcaine. The patient was taken to recovery room in good condition after sponge and needle counts decl ared correct. Kwesi Knowles MD cc: [phone] TT: 03/14/2017 16:20:11 ia
== END 2017-03-02 16:28 | disposition home or self-care (01) | DRG 883 ==
LOC: ED 11:55 → ERH 19:29 → 2RSO 21:16
PROVIDERS: ADMIT Internal Medicine; ATTEND Internal Medicine
PROC: 0DTJ4ZZ Resection of Appendix, Percutaneous Endoscopic Approach (ICD-10-PCS; principal; 2017-03-01 10:00)
DX: K35.80 Unspecified acute appendicitis (principal); R00.1 Bradycardia, unspecified; K52.9 Noninfective gastroenteritis and colitis, unspecified; E87.6 Hypokalemia; K44.9 Diaphragmatic hernia without obstruction or gangrene; R07.89 Other chest pain; F12.90 Cannabis use, unspecified, uncomplicated